=== PATIENT | male | born 1950 | race Hispanic/Latino ===

== ENCOUNTER 2017-04-16 04:08 | Emergency (ER) | payer MEDICARE ==
[~2017-04-16] VITALS: Ht 177.8 cm; Wt 90.7 kg
[~2017-04-16 04:08] MED LIST: ATORVASTATIN CA10 MG PO; BENAZEPRIL HCL10 MG PO; METFORMIN HCL500 MG PO
[2017-04-16] MEDS ORDERED: ACETAMINOPHEN 325 MG TAB PO ONE (04:15)
[2017-04-16 04:54] LABS: STREPTOCOCCUS GRP A ANTIGEN NEGATIVE (NEGATIVE)
[2017-04-16 05:02] LABS: INFLUENZAE A&B ANTIGEN (RAPID) POSITIVE FLU A (NEGATIVE)
--- NOTE | 2017-04-16 05:26 | Diagnostic Imaging Report ---
EXAMINATION: CHEST 2 VIEWS INDICATION: Cough, fever COMPARISON: None FINDINGS: TUBES and LINES: None. LUNGS: Lungs are well inflated. Lungs are clear. There is no evidence of pneumonia or pulmonary edema. PLEURA: No pleural effusion or pneumothorax. HEART AND MEDIASTINUM: The cardiomediastinal silhouette is unremarkable. BONES AND SOFT TISSUES: No acute osseous lesion. Soft tissues are unremarkable. UPPER ABDOMEN: No free air under the diaphragm. IMPRESSION: No acute thoracic abnormality. Signed by: Dr. Valentin Batista M.D. on 04/16/2017 5:22 AM
== END 2017-04-16 05:47 | disposition home or self-care (01) ==
LOC: ER 04:08
DX: R50.9 Fever, unspecified (principal); R05 Cough; J10.1 Influenza due to other identified influenza virus with other respiratory manifestations
CPT/HCPCS: 71020; 83518; 87070; 87400; 99284

== ENCOUNTER → 2017-11-21 | Outpatient (CLI) | payer MEDICARE ==
--- NOTE | 2017-11-21 18:58 | Diagnostic Imaging Report ---
PROCEDURE:HAND RIGHT 3 VIEWS AP \T\ LAT COMPARISON:None. INDICATIONS:RIGHT HAND TINGLING FINDINGS: Normal mineralization. No acute displaced fracture or dislocation. No lytic or blastic lesions. Joint spaces are relatively well-preserved. No cystic erosive changes. Soft tissues are grossly unremarkable. CONCLUSION: No acute abnormalities. Pa Tom M.D. Dictated by: Pa Tom M.D. on 11/21/2017 at 19:04 Electronically approved by: Pa Tom M.D. on 11/21/2017 at 19:04
== END ==
LOC: RAD 10:24
PROVIDERS: ATTEND Family Medicine
DX: M79.641 Pain in right hand (principal)

== ENCOUNTER → 2019-02-07 | Outpatient (CLI) | payer MEDICARE, OTHER ==
--- NOTE | 2019-02-07 09:24 | Diagnostic Imaging Report ---
EXAMINATION: KNEE LEFT 1-2 VIEWS INDICATION: Left knee pain COMPARISON: None FINDINGS: AP and lateral radiographs of the left knee demonstrate no acute fracture or dislocation. Alignment is anatomic. No substantial degenerative change. No joint effusion. The soft tissues appear unremarkable. IMPRESSION: No acute osseous injury. Signed by: Janey Veliz MD on 02/07/2019 9:20 AM
== END ==
LOC: RAD 08:29
PROVIDERS: ATTEND Internal Medicine
DX: M25.562 Pain in left knee (principal)

== ENCOUNTER → 2019-03-26 | Outpatient (CLI) | payer MEDICARE ==
--- NOTE | 2019-03-26 10:17 | Diagnostic Imaging Report ---
TECHNIQUE: Magnetic resonance imaging of the LEFT KNEE was performed WITHOUT injected contrast. HISTORY: Left knee pain COMPARISON: None available. FINDINGS: LIGAMENTS AND TENDONS: ACL: Intact PCL: Intact Collateral ligaments: Intact Iliotibial band: Unremarkable Popliteal tendon: Intact Extensor mechanism: Intact JOINT: Menisci: Medial: Horizontal tear involving the body and posterior horn. Lateral: Intact without discrete tear Articular Cartilage: Medial Compartment: Low-grade cartilage loss Lateral Compartment: Low-grade cartilage loss Patellofemoral Compartment: Low-grade cartilage loss Joint Fluid: The amount of fluid within the joint is within physiologic limits. BONE: No focal or infiltrative bone marrow replacing abnormality. No acute fracture. SOFT TISSUES: Otherwise, unremarkable. IMPRESSION: Medial meniscus horizontal tear body and posterior horn Signed by: Dr. Junito Bill M.D. on 03/26/2019 10:14 AM
== END ==
LOC: MRI 08:24
PROVIDERS: ATTEND Internal Medicine
DX: M17.12 Unilateral primary osteoarthritis, left knee (principal)

== ENCOUNTER → 2020-02-17 | Day surgery (SDC) | payer MEDICARE ==
[2020-02-13 09:15] LABS: BASOPHILS # (AUTO) 0.1 (0.0-0.1); EOSINOPHILS # (AUTO) 0.2 (0.0-0.4); EOSINOPHILS % 1.9 % (0.0-6.0); HEMATOCRIT 48.8 % (38.2-49.6); HEMOGLOBIN 16.6 g/dL (14.0-18.0); LYMPHOCYTES # (AUTO) 2.9 (1.0-3.2); LYMPHOCYTES % 36.4 % (18.0-39.1); MEAN CORPUSCULAR HEMOGLOBIN 29.3 pg (28-32); MEAN CORPUSCULAR VOLUME 86.2 fL (81-99); MONOCYTES # (AUTO) 0.5 (0.2-0.8); MONOCYTES % 6.5 % (4.4-11.3); NEUTROPHILS # (AUTO) 4.2 (2.1-6.9); NEUTROPHILS % 51.7 % (38.7-80.0); PLATELET COUNT 255 x10e3/uL (140-360); RED BLOOD COUNT 5.66 x10e6/uL (4.3-5.7); RED CELL DISTRIBUTION WIDTH 12.4 % (11.7-14.4)
[~2020-02-17] MED LIST changes: +FENTANYL CITRATE/PF 100MCG/2 ML INJ ONE; +GLUCAGON FOR INJ 1 MG VIAL ONE; +HYOSCYAMINE 0.125 MG TAB ONE; +INSULIN REGULAR, HUMAN 100 UNIT/1 ML 3ML VIAL ONE; +LIDOCAINE HCL 2% LOCAL INJ 5 ML SDV VIAL INJ ONE; +MIDAZOLAM HCL 2 MG/2 ML VIAL ONE; +PROPOFOL IV EMULSION 10 MG/ML 20 ML VIAL ONE
[2020-02-17 11:45] VITALS: BP 134/80
--- NOTE | 2020-02-17 12:05 | Operative Report ---
DATE OF PROCEDURE: 02/17/2020 SURGEON: Yovany Armendariz MD PROCEDURE: Colonoscopy with polypectomy. INDICATIONS FOR COLONOSCOPY: Surveillance colonoscopy, personal history of colon polyps. MEDICATIONS: The patient was done under MAC, please see anesthesiologist's note. PROCEDURE IN DETAIL: With the patient in the left lateral decubitus position, a flexible fiberoptic Olympus colonoscope was inserted into the rectum with ease and advanced all the way to the cecum. The scope was then withdrawn slowly. Mucosa overlying the cecum, ascending colon, and transverse colon appeared to be within normal limits. One polyp was hot biopsied from the descending colon. Diverticular disease was noted to involve the descending and the sigmoid. One polyp was hot biopsied from the rectum. The scope was then retroflexed into the distal rectum and small internal hemorrhoids were noted, none of which was actively bleeding. The scope was then straightened out, it was subsequently withdrawn, and the patient tolerated the procedure well. IMPRESSION: 1. Descending colon polyp, hot biopsied. 2. Diverticulosis. 3. Rectal polyp, hot biopsied. 4. Internal hemorrhoids, none actively bleeding. PLAN: Follow up histology. Initiate high-fiber, low-fat diet. Initiate high-fiber supplement. The patient might benefit from a followup colonoscopy in 3 to 5 years. Yovany Armendariz MD [facility] [place] [place] /[id number] cc: Amari Kwon MD
== END | disposition home or self-care (01) ==
LOC: OR 07:02
PROVIDERS: ATTEND Internal Medicine Gastroenterology
DX: Z09 Encounter for follow-up examination after completed treatment for conditions other than malignant neoplasm (principal); D12.8 Benign neoplasm of rectum; K57.30 Diverticulosis of large intestine without perforation or abscess without bleeding; K64.8 Other hemorrhoids; E11.9 Type 2 diabetes mellitus without complications; I10 Essential (primary) hypertension; E78.5 Hyperlipidemia, unspecified; Z01.810 Encounter for preprocedural cardiovascular examination; Z01.812 Encounter for preprocedural laboratory examination; Z20.828 Contact with and (suspected) exposure to other viral communicable diseases; Z79.84 Long term (current) use of oral hypoglycemic drugs
CPT/HCPCS: 36415 ×2; 45384; 82948; 85025; 93005; J1610; J2001; J2250; J2704; J3010; U0002; 45378; J1817

== ENCOUNTER → 2024-12-13 | Day surgery (SDC) | payer MEDICARE ==
[2024-12-04 09:35] LABS: BASOPHILS % 0.7 % (0.0-1.0); EOSINOPHILS % 2.6 % (0.0-6.0); LYMPHOCYTES % 35.5 % (18.0-39.1); MONOCYTES % 7.8 % (4.4-11.3); NEUTROPHILS % 52.2 % (38.7-80.0); RED CELL DISTRIBUTION WIDTH 12.8 % (11.7-14.4)
[~2024-12-13] MED LIST changes: +ASPIRIN81 MG PO; +CANDICIDAL CAP1 EACH; +D3-5000125 MCG; +ELDERBERRY350 MG; +FARXIGA10 MG PO; -FENTANYL CITRATE/PF 100MCG/2 ML INJ ONE; -GLUCAGON FOR INJ 1 MG VIAL ONE; -HYOSCYAMINE 0.125 MG TAB ONE; +HYOSCYAMINE SULFATE 0.5 MG/ML INJ ONE; -INSULIN REGULAR, HUMAN 100 UNIT/1 ML 3ML VIAL ONE; +LACTATED RINGER'S 1,000 ML ONE; -MIDAZOLAM HCL 2 MG/2 ML VIAL ONE; +MULTI-VITAMIN1 EACH PO; +OMEGA 3 FISH O1 EACH PO; +VITAMIN C1000 MG PO; +[UNRECOGNIZED DRUG - OTHER]
[2024-12-13 10:24] VITALS: TEMP 97.1
[2024-12-13 10:55] VITALS: BP 143/93; PULSE 80; RESP 16; O2SAT 98
== END | disposition home or self-care (01) ==
LOC: OR 07:38
PROVIDERS: ATTEND Internal Medicine Gastroenterology
DX: Z09 Encounter for follow-up examination after completed treatment for conditions other than malignant neoplasm (principal); Z86.0100 Personal history of colon polyps, unspecified; K57.90 Diverticulosis of intestine, part unspecified, without perforation or abscess without bleeding; K64.8 Other hemorrhoids; E11.9 Type 2 diabetes mellitus without complications; I10 Essential (primary) hypertension; Z71.3 Dietary counseling and surveillance; E78.5 Hyperlipidemia, unspecified; Z01.810 Encounter for preprocedural cardiovascular examination; Z01.812 Encounter for preprocedural laboratory examination; Z79.82 Long term (current) use of aspirin; Z79.84 Long term (current) use of oral hypoglycemic drugs; Z79.899 Other long term (current) drug therapy; Z68.27 Body mass index [BMI] 27.0-27.9, adult; Z71.89 Other specified counseling; Z91.81 History of falling
CPT/HCPCS: 36415 ×2; 45378; 82948; 85025; 93005; J1980; J2003; J2704; J7121